=== PATIENT | female | born 1950 | race Caucasian/White ===

== ENCOUNTER 2016-04-25 09:19 | Emergency (ER) | payer OTHER, MEDICARE ==
[2016-04-25] MEDS ORDERED: LORazepam 1 MG TABLET PO ONE (09:45)
[2016-04-25] MEDS ORDERED: HYDROcodone-APAP 5 MG -325 MG TABLET PO ONE (09:45)
[2016-04-25 09:47] VITALS: RESP 18; TEMP 97.2
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
[2016-04-25 10:53] LABS: CLARITY,URINE CLOUDY (CLEAR); PH,URINE 5.5 (5.0-8.5); URINE SAMPLE TYPE VOIDED SPECIMEN
[2016-04-25 10:55] LABS: BILIRUBIN,URINE NEGATIVE (NEG); GLUCOSE, URINE (UA) NEGATIVE (NEG); LEUKOCYTE ESTERASE ,URINE SMALL (NEG); NITRATE,URINE POSITIVE (NEG); OCCULT BLOOD,URINE NEGATIVE (NEG); PROTEIN,URINE NEGATIVE (NEG); UROBILINOGEN,URINE 0.2 EU/dL (0.2)
[2016-04-25 10:56] LABS: BACTERIA,URINE MODERATE; SQUAMOUS EPITHELIAL CELL,UR MODERATE; URINE CRYSTALS MANY
--- NOTE | 2016-04-25 11:17 | DI ---
THORACIC SPINE SERIES, 04/25/2016 9:45 AM: Clinical History: Back pain. Previous Exam: 06/20/2007. Upright AP and lateral and an upright lateral swimmer's view are submitted. The vertebral bodies are of normal height and size with chronic disc space narrowing anteriorly T4-5 through T11-12. There is increased thoracic kyphosis but this is unchanged from the previous exam. Pedicles and posterior [place] ents are normal. There are no paravertebral masses. There is osteoporosis. Readin. Chronic disc space narrowing from C4-5 through T11-12. The exam is otherwise normal. 2. Osteoporosis.
== END 2016-04-25 10:30 | disposition home or self-care (01) ==
LOC: ER 09:19
DX: F41.9 Anxiety disorder, unspecified (principal); N39.0 Urinary tract infection, site not specified; E11.9 Type 2 diabetes mellitus without complications; V44.5XXA Car driver injured in collision with heavy transport vehicle or bus in traffic accident, initial encounter
CPT/HCPCS: 72072; 81001; 81003; 87077; 87088; 87186; 99283

== ENCOUNTER → 2016-04-27 | Outpatient (CLI) | payer OTHER, MEDICARE | LOC: MMPC 09:00 | PROVIDERS: ATTEND Family Medicine | DX: G89.29 Other chronic pain (principal); F32.0 Major depressive disorder, single episode, mild | CPT/HCPCS: 99213; G0463 ==

== ENCOUNTER 2016-06-16 18:49 | Emergency (ER) | payer OTHER, MEDICARE ==
[2016-06-16] MEDS ORDERED: IPRATROPIUM/ALBUTEROL SULFATE 3 ML NEB NEB ONE (19:10)
[2016-06-16 19:34] VITALS: RESP 20; TEMP 97.2
[2016-06-16] MEDS ORDERED: AZITHROMYCIN 250 MG TABLET PO ONE (20:19)
[2016-06-16] MEDS ORDERED: NYSTATIN 15 GM CREAM TOPICAL SCH (20:30)
--- NOTE | 2016-06-16 21:49 | DI ---
PA /LATERAL CHEST X-RAY, 06/16/2016 7:10 PM : Clinical History: Cough. Previous Exam: None at this facility. There is no acute soft tissue or bony abnormality. Heart size is normal. There is no acute infiltrate or effusion. There is centrilobular emphysema with mild pulmonary arterial hypertension. Mediastinal structures are otherwise normal. There are no pulmonary nodules. Readin. There is no acute infiltrate or effusion. 2. Centrilobular emphysema with pulmonary arterial hypertension.
--- NOTE | 2016-06-17 05:57 | PDOC ---
General Adult HPI - General Chief Complaint: General Medical Stated Complaint: cough, congestion, "rash" Date Seen by Provider: 06/16/16 Time Seen by Provider: 19:00 Source: POSITIVE: Patient Exam Limitations: POSITIVE: No limitations Nurse's Notes Reviewed & Considered: Yes - History of Present Illness Initial Comment: The patient is a 66-year-old female. She states that for the past week she has had a minimally productive cough. She also states that for the past several weeks she has had a "rash"under a fold of pannus in her abdomen. She does not think she's had any fevers. Her cough is mildly productive of mucoid sputum. Nasal congestion. No ear or throat pain. No GI or symptoms. No neurologic symptoms. Have you received a tetanus shot in the past 10 years?: Unknown Body Location Affected: REPORTS: Chest, Abdomen (Rash; see diagram) Timing: REPORTS: Constant Duration: >1 week Severity: Moderate Quality: REPORTS: Other (Patient denies any pain anywhere) Context: REPORTS: None Modifying Factors: improves with: Nothing Similar Symptoms Previously: No Recent Care Received: REPORTS: Denies Any Prior Injuries Related to Current Complaint?: No - Patient Home Medications Home Medications: Home Medications Calc/D3/Mag/Zn/Tube Washer/[place] [Calcium 600 Mg + Vit D Tab] 1 each PO BID #180 tab 01/02/13 Nystatin 1 applic EXTERNAL TID #1 bottle 06/16/15 Bupropion HCl [Bupropion Hcl Sr] 1 tab PO DAILY #30 tab 03/13/16 Citalopram Hydrobromide [Celexa] 10 mg PO DAILY #30 tab 03/13/16 Gabapentin 1 tab PO TID #90 tab 03/13/16 Metformin HCl 500 mg PO BID #60 tab 03/13/16 Omeprazole 40 mg ORAL QD #90 capsule 03/13/16 Simvastatin 5 mg PO DAILY #30 tab 03/13/16 Cholecalciferol [Vitamin D] 400 unit PO DAILY 04/25/16 Cephalexin 1 tab PO QID tab 04/27/16 Hydrocodone/Acetaminophen [Hydrocodon-Acetaminophen 5-325] 1 each PO TID PRN # 120 tab 04/27/16 Tizanidine HCl [Zanaflex] 1 tab PO Q8H #60 tab 05/19/16 Azithromycin [Zithromax] 500 mg PO DAILY #4 tab 03/10/17 Nystatin/Triamcin [Mycolog Ii Cream] 60 gm TP Q8H #1 cream.gm. 06/16/16 - Patient Allergies Allergies/Adverse Reactions: Allergies Allergy/AdvReac Type Severity Reaction Status Date / Time No Known Allergies Allergy Verified 06/16/16 19:12 Past Medical History - heen HEENT History: Blindness, Dentures/Partials Additional 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 Cardiovascular History: Hyperlipidemia Respiratory History: COPD, Snoring Gastrointestinal History: GERD, Peptic Ulcer Disease Genitourinary History: Kidney Stones Endocrine History: Type 2 Diabetes (oral) Additional Endocrine History: STATES IS NOT DIAGNOSED WITH DIABETES BUT HAS HIGH BLOOD GLUCOSE Musculoskeletal History: Back Pain, Carpal Tunnel, Osteoarthritis Prosthesis or Implant: No Neurological History: Denies History Blood Disorders: Denies History Psychiatric History: Depression, Anxiety Disorders History of Sexually Transmitted Diseases: No Cancer History: Skin In Past Year Been Physically Harmed or Verbally Threatened: No History of MDRO: No History of Other Communicable Diseases: No Tobacco Use: Former Smoker Alcohol Use: None Substance Use Type: None Previous Surgical History: Yes Type / Date of Surgery: COLONOSCOPY, LAP LEONIDES, EYE SURGERY IN LEFT EYE. tonsilectomy Anesthesia Reactions: No Malignant Hyperthermia: No Significant Family History: Cancer Past Medical History Reviewed: Reviewed - No Changes ROS - Limitations ROS Limitations: No Limitations Constitution: REPORTS: Denies Symptoms Cardiovascular: REPORTS: Denies Cardiac Symptoms Respiratory: REPORTS: Cough Productive (Productive of mucoid sputum) Neurological: REPORTS: Denies Neuro Symptoms Gastrointestinal: REPORTS: Denies GI Symptoms Endocrine: REPORTS: Denies Symptoms Musculoskeletal: REPORTS: Denies MS Symptoms Genitourinary: REPORTS: Denies Symptoms Eyes: REPORTS: Denies Symptoms ENT: REPORTS: Nasal Drainage Skin: REPORTS: Skin Lesions, Rash ("Rash"under her skin fold anterior abdomen) Lympathic: REPORTS: Denies Lympathic Symptoms Immunologic: POSITIVE: Denies Symptoms Psychiatric: POSITIVE: Denies Psych Symptoms General Adult Exam - General Appearance General Appearance: POSITIVE: Alert, Cooperative, No Acute Distress, No Evidence of Trauma - HEENT HEENT: POSITIVE: Head Inspection Nml, Eyes Inspection Nml, Ears Inspection Nml, Oral/Dental Inspect. Nml, Pharynx Inspect. Nml, PERRL, EOMI. NEGATIVE: Nose Inspection Nml (Nose congested) - Pupils Pupil Size: 4 mm: Bilateral (PERRLA) - Neck Neck: POSITIVE: Normal Inspection, Thyroid Normal - Respiratory Respiratory: POSITIVE: No Respiratory Distress, Chest Non-Tender, Rhonchi ( Scattered coarse rhonchi). NEGATIVE: Breath Sounds Normal - Cardiovascular Cardiovascular: POSITIVE: Regular Rate & Rhythm, No Murmur, No Gallop, PMI Normal Peripheral Pulses: Radial (R): 2+, Radial (L): 2+ - Abdomen Abdomen: Soft: (All Quadrants), Normal Bowel Sounds: (All Quadrants), Denies Tenderness: (All Quadrants), No Splenomegaly: (All Quadrants), No Hepatomegaly: (All Quadrants), No Guarding: (All Quadrants), No Rebound: (All Quadrants), No Palpable Pulse: (All Quadrants), No Palpabale Mass: (All Quadrants), No Distention: (All Quadrants), No Rigidity: (All Quadrants) - Back Back: POSITIVE: Normal Inspection - Skin Skin: POSITIVE: Other (Prominent intertrigo under an abdominal skin fold) - Extremities Extremity: Non-Tender: (All Extremities), Normal ROM: (All Extremities), Normal Inspection: (All Extremities) - Neurological / Psychological Neurological: 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: 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, 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 As Tested, Motor Normal, Sensation Normal, 5, 6 Images - Complete Complete: 1 - Intertrigo underneath a skin fold; patient has a prominent pannus General Adult Progress - Results Reviewed by me Xrays/CTs/US Reviewed by me: Yes Discussed with Radiologist: Yes Radiology Findings: Chest x-ray shows no infiltrates - Patient's Progress Pain Medication Addressed: POSITIVE: Not Applicable School/Work Release Addressed: POSITIVE: Not Applicable Re-Examine Time: 20:05 Status: POSITIVE: Unchanged Antibiotics Given: Yes (Zithromax 500 mg daily for 5 days) - Consult Counseled: POSITIVE: Patient, RE: Radiology Results, RE: DX, RE: Need for F/U Patient Care Time - Estimated PCT Patient Care Time (In Minutes): 30 Vital Signs - VS Reviewed Vital Signs Reviewed: Yes Discharge Clinical Impression: Bronchitis, Intertrigo Discharge Disposition: Discharged to Home Condition: Stable Prescriptions / Orders: Nystatin/Triamcin [Mycolog Ii Cream] 60 gm TP Q8H #1 cream.gm. Azithromycin [Zithromax] 500 mg PO DAILY #4 tab Patient Instructions Given at Discharge: Acute Bronchitis (ED), Skin Yeast Infection (ED) Additional Instructions: You have bronchitis. He also have a irritation and yeast infection of the skin where 2 rolls of skin on your abdomen contact each other. For your bronchitis please take Zithromax, 1 daily for 5 days. For your skin problem, apply Mycolog -II 3 times daily. Keep that area dry. Follow-up with your primary care provider. Return here as necessary. Follow Up With: SHERYL BULLOCK [Primary Care Provider] - (Instructions as above. Follow-up with your primary care provider. Return here as necessary.)
== END 2016-06-16 20:29 | disposition home or self-care (01) ==
LOC: ER 18:49
DX: J20.9 Acute bronchitis, unspecified (principal); L30.4 Erythema intertrigo; R21 Rash and other nonspecific skin eruption; E11.9 Type 2 diabetes mellitus without complications
CPT/HCPCS: 71020; 94640; 99282 ×2; J7620

== ENCOUNTER → 2016-06-22 | Outpatient (CLI) | payer OTHER, MEDICARE ==
[2016-06-22 15:19] LABS: HEMOGLOBIN A1C 6.08 % (4.2-6.0)
[2016-06-22 15:23] LABS: BLOOD UREA NITROGEN 10 mg/dL (7-22); BUN/CREATININE RATIO 14.28 (6-20); CALCIUM 9.4 mg/dL (8.7-10.7); EST GLOMERULAR FILTRATION > 60 (>60 ml/min/1.73m(2)); SERUM ALBUMIN 4.2 g/dL (3.5-4.8)
== END ==
LOC: MOB LAB 14:50
PROVIDERS: ATTEND Family Medicine
DX: E11.9 Type 2 diabetes mellitus without complications (principal); E78.5 Hyperlipidemia, unspecified; G89.29 Other chronic pain; G62.9 Polyneuropathy, unspecified; R25.1 Tremor, unspecified
CPT/HCPCS: 36415; 80053; 83036; 99213; G0463

== ENCOUNTER → 2016-08-23 | Outpatient (CLI) | payer OTHER, MEDICARE | LOC: MMPC 09:00 | PROVIDERS: ATTEND Family Medicine | DX: R29.818 Other symptoms and signs involving the nervous system (principal); H57.04 Mydriasis; E11.9 Type 2 diabetes mellitus without complications; K62.5 Hemorrhage of anus and rectum; R10.32 Left lower quadrant pain | CPT/HCPCS: 99214; G0463 ==

== ENCOUNTER → 2016-08-24 | Outpatient (CLI) | payer OTHER, MEDICARE ==
--- NOTE | 2016-08-24 14:12 | DI ---
CT HEAD SCAN WITHOUT IV CONTRAST, 08/24/2016 1:51 PM : Clinical History: Neurological deficit Previous Exam: None at this facility. Scans are obtained from the foramen magnum to the vertex without IV contrast. The 4th, 3rd, and lateral ventricles are of normal size, shape, position, and contour. There are no abnormal areas of increased or decreased density. There is no intracranial hemorrhage. Bone window evaluation is normal. The paranasal sinuses are normal. READING: Normal CT head for age.
== END ==
LOC: CT 13:45
PROVIDERS: ATTEND Family Medicine
DX: R29.818 Other symptoms and signs involving the nervous system (principal); H57.04 Mydriasis
CPT/HCPCS: 70450

== ENCOUNTER → 2016-08-30 | Outpatient (CLI) | payer OTHER, MEDICARE | LOC: MMPC 11:11 | PROVIDERS: ATTEND Surgery | DX: K29.50 Unspecified chronic gastritis without bleeding (principal); K62.5 Hemorrhage of anus and rectum; Z86.010 Personal history of colon polyps | CPT/HCPCS: 99212; G0463 ==

== ENCOUNTER 2016-09-01 09:23 | Day surgery (SDC) | payer OTHER, MEDICARE ==
[~2016-09-01 09:23] MED LIST: LIDOCAINE 2% VISCOUS(20 MG/1 ML) - 15 ML UD CUP PO ONE; LIDOCAINE HCL/PF 2% (20 MG/ML) - 5 ML SYRINGE ONE; LIDOCAINE W/ SODIUM BICARB 0.5 ML SYR ONE; Lactated Ringers 1,000 ML PRIMARY IV ONE; MIDAZOLAM 5 MG/1 ML ONE; fentaNYL Inj 100 MCG/2 ML VIAL ONE
--- NOTE | 2016-09-01 14:46 | GEN.OPNOTE ---
EGD / Colonoscopy Report Surgery Date: 09/01/16 Preoperative Diagnosis: Chronic gastritis. History of colon polyps. Blood in stool Postoperative Diagnosis: Acute gastritis. Diverticulosis. Submucosal mass seen across from the ileocecal valve Procedure: Colonoscopy Surgeon: Demario Jenkins MD Anesthesia Provider: Sylvia Hua CRNA Anesthesia Type: MAC Indications: Patient been having some chronic gastritis type symptoms. She also has a history of dysplastic polyp has been removed. Patient is been has a bright red rectal bleeding and incontinence EGD Findings: Esophagus: The distal EGD scope inserted posterior pharynx. That in the esophagus under direct visualization. Esophagus appeared be totally normal. GE Junction : GE junction proximal be 40 cm from incisors Fundus : Scope retroflexed on itself revealing normal-appearing fundus Body : Patient has some shallow ulcers and subacute inflammatory changes seen at the lesser curve biopsies taken Prepyloric : Prepyloric was within normal limits. Biopsy taken rule out H. pylori Small Intestine : First second third portion of the duodenum was within normal limits A lubricated flexible upper endoscope was inserted and passed through the esophagus and stomach into the duodenum. Colonoscopy Findings: Prep : Was adequate still some retained stool Cecum : Scope was advanced all way to the cecum without any difficulty. Ileocecal valve identified. Patient appeared to be what submucosal type lesion at the cecum. I think this represents of lipoma. A biopsy was taken of the mucosa Ascending : Ascending colons within normal limits Transverse : Transverse colon had no abnormal pathology Sigmoid : Descending and sigmoid colon had diverticular disease. At 60 cm I do not see any evidence of recurrent polyp Rectum : Rectum free from disease sessile internal hemorrhoids not actively bleeding Digital Rectal Exam : A lubricated flexible colonoscope was inserted and passed to the blind end of the cecum. Additional Details: We'll await the results of the biopsy doubly this is just a lipoma the bowel. May need to get a CT scan with rectal contrast.
[2016-09-01 15:15] VITALS: RESP 18
[2016-09-01 15:16] VITALS: TEMP 97
== END 2016-09-01 15:15 | disposition home or self-care (01) ==
LOC: SDSC 09:23
PROVIDERS: ATTEND Surgery
DX: K29.50 Unspecified chronic gastritis without bleeding (principal); K29.00 Acute gastritis without bleeding; K57.90 Diverticulosis of intestine, part unspecified, without perforation or abscess without bleeding; K63.89 Other specified diseases of intestine
CPT/HCPCS: 45378; 87339; J2704; J3010; J2001; J2250; J7120

== ENCOUNTER → 2016-09-05 | Outpatient (CLI) | payer OTHER, MEDICARE ==
[2016-09-05 12:03] LABS: HEMOGLOBIN A1C 5.95 % (4.2-6.0)
[2016-09-06 14:06] LABS: A/G RATIO 0.88 (()); ALP1 GLOB 0.3 g/dL (0.1-0.3); ALP2 GLOB 1.1 g/dL (0.6-1.0)
[2016-09-06 15:19] LABS: ALB PEP SER 3.1 g/dL (3.4-4.7)
== END ==
LOC: MOB LAB 10:56
PROVIDERS: ATTEND Psychiatry & Neurology Neurology
DX: G62.9 Polyneuropathy, unspecified (principal); E11.9 Type 2 diabetes mellitus without complications
CPT/HCPCS: 36415; 82607; 83036; 84155; 84165; 84443; 85652; 86334

== ENCOUNTER → 2016-09-22 | Outpatient (CLI) | payer OTHER, MEDICARE | LOC: MMPC 11:11 | PROVIDERS: ATTEND Surgery | DX: K29.30 Chronic superficial gastritis without bleeding (principal) | CPT/HCPCS: 99212; G0463 ==

== ENCOUNTER → 2016-10-25 | Outpatient (CLI) | payer OTHER, MEDICARE | LOC: MMPC 09:00 | PROVIDERS: ATTEND Family Medicine | DX: E78.5 Hyperlipidemia, unspecified (principal); E11.9 Type 2 diabetes mellitus without complications; M81.0 Age-related osteoporosis without current pathological fracture; J44.9 Chronic obstructive pulmonary disease, unspecified | CPT/HCPCS: 99213; G0463 ==